=== PATIENT | female | born 1955 | race Caucasian/White ===

== ENCOUNTER 2018-10-31 20:55 | Inpatient (IN) | payer MEDICARE, BC, MEDICAID ==
[~2018-10-31] VITALS: Ht 170.2 cm; Wt 62.0 kg
[~2018-10-31 20:55] MED LIST: ALEN70TA2 PO; AMIT50TA3 PO; CETI-261 PO; FLUT1AER IH; FLUT1DIS3; GABA300C PO; IPRA3AMP24 NEB; MORP10CA11 PO; OSEL6SUS4 PO; OXYC15TA2 PO; PARO30TA76 PO
[2018-10-31 21:50] LABS: GLUCOSE,POINT OF CARE 94 MG/DL (70-110)
[2018-10-31] MEDS ORDERED: MAGNESIUM HYDROXIDE SUSPENSION 30 ML UDCUP PO PRN (22:15)
[2018-10-31] MEDS ORDERED: ONDANSETRON HCL 4 MG/2 ML VIAL IVP PRN (22:15)
[2018-10-31] MEDS ORDERED: BISACODYL 10 MG RECTAL RECTAL SUPPOSITORY PR PRN (22:15)
[2018-10-31] MEDS: ALBUTEROL SULFATE 2.5 MG/0.5 ML NEB SOLUTION NEB SCH (22:15)
[2018-10-31] MEDS: IPRATROPIUM BROMIDE 0.5 MG/2.5 ML NEB SOLUTION NEB SCH (22:15)
[2018-10-31 23:10] LABS: BASOPHILS % (AUTO) 0.3 % (0.0-2.0); HEMATOCRIT 35.1 % (36-46); HEMOGLOBIN 11.3 g/dL (12.0-16.0); LYMPHOCYTES # (AUTO) 0.6 K/uL (1.0-4.8); LYMPHOCYTES % (AUTO) 8.6 % (22.0-44.0); MEAN CORPUSCULAR HEMOGLOBIN 27.2 pg (26.0-34.0); MEAN CORPUSCULAR HGB CONC 32.1 G/dL (31.0-37.0); MEAN CORPUSCULAR VOLUME 85 fL (80-100); MONOCYTES # (AUTO) 0.3 K/uL (0.1-1.0); MONOCYTES % (AUTO) 4.1 % (2.0-9.0); NEUTROPHILS # (AUTO) 5.6 K/uL (1.8-7.7); PLATELET COUNT (AUTO) 266 K/uL (150-450); RED BLOOD CELL COUNT(AUTO) 4.15 MIL/uL (4.00-5.20); RED CELL DISTRIBUTION WIDTH 17.8 % (11.5-14.5)
[2018-10-31] MEDS: HEPARIN SODIUM,PORCINE 5,000 UNITS/ML VIAL SQ SCH (23:15)
[2018-10-31 23:23] LABS: PROTHROMBIN TIME 10.1 SEC (9.4-11.6)
[2018-10-31 23:25] LABS: ALANINE AMINOTRANSFERASE 20 U/L (12-78); ALBUMIN 2.8 g/dL (3.4-5.0); ALKALINE PHOSPHATASE 71 U/L (46-116); ANION GAP 9 mmol/L (8-16); ASPARTATE AMINOTRANSFERASE 19 U/L (15-37); BILIRUBIN,TOTAL 0.3 mg/dL (0.1-1.0); CALCIUM, TOTAL 8.7 mg/dL (8.8-10.5); CARBON DIOXIDE 27 mmol/L (22-29); CHLORIDE 102 mmol/L (98-107); CREATININE 0.74 mg/dL (0.60-1.30); GLOMERULAR FILTR. RATE CALC > 60 mL/min (>60); GLUCOSE,RANDOM 123 mg/dL (70-110); POTASSIUM 4.3 mmol/L (3.5-5.1); SODIUM SERUM 138 mmol/L (136-145); TOTAL PROTEIN, SERUM 6.6 g/dL (6.4-8.2)
[2018-10-31 23:34] LABS: B-TYPE NATRIURETIC PEPTIDE 42 pg/mL (0-100)
[2018-10-31 23:43] LABS: UREA NITROGEN, BLOOD 21 mg/dL (7-18)
[2018-11-01] MEDS: IPRATROPIUM BROMIDE 0.5 MG/2.5 ML NEB SOLUTION NEB SCH ×4 (02:43→20:25)
[2018-11-01] MEDS: ALBUTEROL SULFATE 2.5 MG/0.5 ML NEB SOLUTION NEB SCH ×4 (02:43→20:25)
[2018-11-01 02:52] VITALS: BP 135/64
[2018-11-01] MEDS ORDERED: INFLUENZA VIRUS VACCINE QVS 2019-20 (3YR+)/PF 60 MCG/0.5 ML SYRINGE IM ONE (03:30)
[2018-11-01 05:32] LABS: BASOPHILS % (AUTO) 0.5 % (0.0-2.0); EOSINOPHILS % (AUTO) 3.5 % (1.0-6.0); HEMATOCRIT 31.5 % (36-46); HEMOGLOBIN 10.2 g/dL (12.0-16.0); LYMPHOCYTES # (AUTO) 0.9 K/uL (1.0-4.8); LYMPHOCYTES % (AUTO) 21.6 % (22.0-44.0); MEAN CORPUSCULAR HEMOGLOBIN 27.3 pg (26.0-34.0); MEAN CORPUSCULAR HGB CONC 32.4 G/dL (31.0-37.0); MEAN CORPUSCULAR VOLUME 84 fL (80-100); MONOCYTES # (AUTO) 0.3 K/uL (0.1-1.0); NEUTROPHILS # (AUTO) 2.8 K/uL (1.8-7.7); NEUTROPHILS % (AUTO) 67.4 % (40.0-70.0); PLATELET COUNT (AUTO) 242 K/uL (150-450); RED BLOOD CELL COUNT(AUTO) 3.74 MIL/uL (4.00-5.20); RED CELL DISTRIBUTION WIDTH 17.5 % (11.5-14.5)
[2018-11-01 05:37] LABS: HEMOGLOBIN A1C 4.4 % (4.5-6.2)
[2018-11-01 05:47] LABS: BILIRUBIN,URINE NEGATIVE (NEGATIVE); GLUCOSE, URINE (UA) NEGATIVE (NEGATIVE); KETONES,URINE NEGATIVE (NEGATIVE); LEUKOCYTE ESTERASE ,URINE MODERATE (NEGATIVE); NITRATE,URINE NEGATIVE (NEGATIVE); PH,URINE 5.5 (5.0-8.0); PROTEIN,URINE NEGATIVE (NEGATIVE); UROBILINOGEN,URINE 0.2 mg/dL (<=1.0)
[2018-11-01 06:04] LABS: OCCULT BLOOD,URINE SMALL (NEGATIVE)
[2018-11-01 06:05] LABS: APPEARANCE,URINE SLIGHTLY CLOUDY (CLEAR)
[2018-11-01 06:06] LABS: BACTERIA,URINE Moderate /HPF (None Seen); SQUAMOUS EPITHELIAL CELL,UR Moderate /LPF (None Seen)
[2018-11-01 06:08] LABS: ANION GAP 8 mmol/L (8-16); CALCIUM, TOTAL 8.2 mg/dL (8.8-10.5); CARBON DIOXIDE 29 mmol/L (22-29); CHLORIDE 105 mmol/L (98-107); CHOL/HDL RATIO 2.4 (3.9-5.7); CHOLESTEROL 146 mg/dL (131-200); CREATINE KINASE, TOTAL ONLY 32 U/L (26-192); CREATININE 0.62 mg/dL (0.60-1.30); FREE T4 (FREE THYROXINE) 1.03 ng/dL (0.76-1.46); GLOMERULAR FILTR. RATE CALC > 60 mL/min (>60); GLUCOSE,RANDOM 86 mg/dL (70-110); HDL CHOLESTEROL 60 mg/dL (40-60); LDL CHOL (CALC.) 78 mg/dL (0-130); POTASSIUM 3.8 mmol/L (3.5-5.1); SODIUM SERUM 142 mmol/L (136-145); THYROID STIMULATING HORMONE 0.83 uIU/mL (0.36-3.74); TRIGLYCERIDES 42 mg/dL (15-150); UREA NITROGEN, BLOOD 20 mg/dL (7-18)
[2018-11-01] MEDS ORDERED: AMITRIPTYLINE HCL 50 MG TABLET PO SCH (09:00)
[2018-11-01] MEDS ORDERED: CETIRIZINE HCL 1 MG/ML PO SCH (09:00)
[2018-11-01 09:27] VITALS: BP 126/76
[2018-11-01] MEDS: FLUTICASONE/VILANTEROL 100-25 MCG/INH INHALER [14] IH SCH (09:50)
[2018-11-01] MEDS: PANTOPRAZOLE SODIUM 40 MG DR TABLET PO SCH (09:50)
[2018-11-01] MEDS: GABAPENTIN 300 MG CAPSULE PO SCH ×3 (09:50→21:32)
[2018-11-01] MEDS: PARoxetine HCL 10 MG TABLET PO SCH (09:50)
[2018-11-01] MEDS: HEPARIN SODIUM,PORCINE 5,000 UNITS/ML VIAL SQ SCH ×2 (09:50→21:59)
[2018-11-01 11:59] VITALS: BP 121/74
[2018-11-01] MEDS ORDERED: SODIUM CHLORIDE 0.9% 250 ML IV ONE (13:51)
[2018-11-01] MEDS: CefTRIAXone 1 GM/DEXTROSE 50 ML IV SCH (13:55)
[2018-11-01 15:19] VITALS: BP 122/72
[2018-11-01] MEDS: DICLOFENAC SODIUM 1% 100 GM GEL [4GM] TP SCH ×3 (17:23→21:32)
[2018-11-01] MEDS: PSYLLIUM SEED ORANGE SF 5.8 GM/PACKET PO SCH ×2 (17:23→21:32)
[2018-11-01 20:25] VITALS: BP 139/79
[2018-11-02 00:20] VITALS: BP 159/90
[2018-11-02] MEDS: ALBUTEROL SULFATE 2.5 MG/0.5 ML NEB SOLUTION NEB SCH ×4 (03:10→19:47)
[2018-11-02] MEDS: IPRATROPIUM BROMIDE 0.5 MG/2.5 ML NEB SOLUTION NEB SCH ×4 (03:10→19:47)
[2018-11-02 04:30] VITALS: BP 168/93
[2018-11-02 06:39] LABS: BASOPHILS % (AUTO) 0.2 % (0.0-2.0); EOSINOPHILS % (AUTO) 1.9 % (1.0-6.0); HEMATOCRIT 36.8 % (36-46); HEMOGLOBIN 11.7 g/dL (12.0-16.0); LYMPHOCYTES # (AUTO) 0.7 K/uL (1.0-4.8); LYMPHOCYTES % (AUTO) 17.5 % (22.0-44.0); MEAN CORPUSCULAR HEMOGLOBIN 26.9 pg (26.0-34.0); MEAN CORPUSCULAR HGB CONC 31.8 G/dL (31.0-37.0); MEAN CORPUSCULAR VOLUME 85 fL (80-100); MONOCYTES # (AUTO) 0.2 K/uL (0.1-1.0); MONOCYTES % (AUTO) 4.9 % (2.0-9.0); NEUTROPHILS # (AUTO) 2.9 K/uL (1.8-7.7); NEUTROPHILS % (AUTO) 75.5 % (40.0-70.0); PLATELET COUNT (AUTO) 259 K/uL (150-450); RED BLOOD CELL COUNT(AUTO) 4.35 MIL/uL (4.00-5.20); RED CELL DISTRIBUTION WIDTH 17.7 % (11.5-14.5)
[2018-11-02 06:58] LABS: ANION GAP 7 mmol/L (8-16); CALCIUM, TOTAL 8.5 mg/dL (8.8-10.5); CARBON DIOXIDE 31 mmol/L (22-29); CHLORIDE 105 mmol/L (98-107); CREATININE 0.66 mg/dL (0.60-1.30); GLOMERULAR FILTR. RATE CALC > 60 mL/min (>60); GLUCOSE,RANDOM 85 mg/dL (70-110); POTASSIUM 3.2 mmol/L (3.5-5.1); SODIUM SERUM 143 mmol/L (136-145); UREA NITROGEN, BLOOD 14 mg/dL (7-18)
[2018-11-02] MEDS ORDERED: CloNIDine HCL 0.1 MG TABLET PO PRN (07:15)
[2018-11-02] MEDS ORDERED: POTASSIUM CHLORIDE 20 MEQ ER TABLET PO PRN (07:15)
[2018-11-02] MEDS ORDERED: LOPERAMIDE HCL 2 MG CAPSULE PO PRN (07:15)
[2018-11-02] MEDS ORDERED: POTASSIUM CHL 10 MEQ/WATER 50 ML IV PRN (07:15)
[2018-11-02] MEDS: LACTOBAC ACID/BULG/BIFID/THERM TABLET PO SCH (08:11)
[2018-11-02] MEDS: FLUTICASONE/VILANTEROL 100-25 MCG/INH INHALER [14] IH SCH (08:11)
[2018-11-02 08:12] VITALS: BP 115/80
[2018-11-02] MEDS: PSYLLIUM SEED ORANGE SF 5.8 GM/PACKET PO SCH ×3 (08:12→20:33)
[2018-11-02] MEDS: GABAPENTIN 300 MG CAPSULE PO SCH ×3 (08:12→20:32)
[2018-11-02] MEDS: AmLODIPine BESYLATE 5 MG TABLET PO SCH (08:12)
[2018-11-02] MEDS: MONTELUKAST SODIUM 10 MG TABLET PO SCH (08:13)
[2018-11-02] MEDS: PANTOPRAZOLE SODIUM 40 MG DR TABLET PO SCH (08:13)
[2018-11-02] MEDS: PARoxetine HCL 10 MG TABLET PO SCH (08:13)
[2018-11-02] MEDS: HEPARIN SODIUM,PORCINE 5,000 UNITS/ML VIAL SQ SCH ×2 (08:14→21:05)
[2018-11-02] MEDS: DICLOFENAC SODIUM 1% 100 GM GEL [4GM] TP SCH ×4 (08:14→20:32)
[2018-11-02] MEDS: OxyCODONE HCL 5 MG IR TABLET PO PRN ×2 (08:23→17:59)
[2018-11-02 11:28] VITALS: BP 118/76
[2018-11-02] MEDS: CefTRIAXone 1 GM/DEXTROSE 50 ML IV SCH (13:04)
[2018-11-02 16:05] VITALS: BP 142/66
[2018-11-02 20:11] VITALS: BP 108/58
[2018-11-02] MEDS ORDERED: AMITRIPTYLINE HCL 50 MG TABLET PO SCH (21:00)
[2018-11-03 00:06] VITALS: BP 136/94
[2018-11-03] MEDS: IPRATROPIUM BROMIDE 0.5 MG/2.5 ML NEB SOLUTION NEB SCH ×2 (04:15→07:49)
[2018-11-03] MEDS: ALBUTEROL SULFATE 2.5 MG/0.5 ML NEB SOLUTION NEB SCH ×2 (04:15→07:49)
[2018-11-03 05:17] VITALS: BP 154/96
[2018-11-03 07:34] VITALS: BP 157/85
[2018-11-03 08:23] LABS: BASOPHILS % (AUTO) 0.4 % (0.0-2.0); EOSINOPHILS % (AUTO) 3.4 % (1.0-6.0); HEMOGLOBIN 11.2 g/dL (12.0-16.0); LYMPHOCYTES % (AUTO) 22.3 % (22.0-44.0); MEAN CORPUSCULAR HEMOGLOBIN 26.3 pg (26.0-34.0); MEAN CORPUSCULAR HGB CONC 31.2 G/dL (31.0-37.0); MEAN CORPUSCULAR VOLUME 84 fL (80-100); MONOCYTES # (AUTO) 0.3 K/uL (0.1-1.0); MONOCYTES % (AUTO) 6.1 % (2.0-9.0); NEUTROPHILS % (AUTO) 67.8 % (40.0-70.0); PLATELET COUNT (AUTO) 277 K/uL (150-450); RED BLOOD CELL COUNT(AUTO) 4.27 MIL/uL (4.00-5.20); RED CELL DISTRIBUTION WIDTH 17.5 % (11.5-14.5)
[2018-11-03 08:36] LABS: ANION GAP 9 mmol/L (8-16); CALCIUM, TOTAL 8.5 mg/dL (8.8-10.5); CARBON DIOXIDE 29 mmol/L (22-29); CHLORIDE 106 mmol/L (98-107); CREATININE 0.62 mg/dL (0.60-1.30); GLOMERULAR FILTR. RATE CALC > 60 mL/min (>60); GLUCOSE,RANDOM 80 mg/dL (70-110); POTASSIUM 3.8 mmol/L (3.5-5.1); SODIUM SERUM 144 mmol/L (136-145); UREA NITROGEN, BLOOD 15 mg/dL (7-18)
[2018-11-03] MEDS: OxyCODONE HCL 5 MG IR TABLET PO PRN (09:14)
[2018-11-03] MEDS: PARoxetine HCL 10 MG TABLET PO SCH (09:15)
[2018-11-03] MEDS: DICLOFENAC SODIUM 1% 100 GM GEL [4GM] TP SCH ×2 (09:15→14:18)
[2018-11-03] MEDS: FLUTICASONE/VILANTEROL 100-25 MCG/INH INHALER [14] IH SCH (09:15)
[2018-11-03] MEDS: PANTOPRAZOLE SODIUM 40 MG DR TABLET PO SCH (09:15)
[2018-11-03] MEDS: MONTELUKAST SODIUM 10 MG TABLET PO SCH (09:15)
[2018-11-03] MEDS: AmLODIPine BESYLATE 5 MG TABLET PO SCH (09:15)
[2018-11-03] MEDS: LACTOBAC ACID/BULG/BIFID/THERM TABLET PO SCH (09:15)
[2018-11-03] MEDS: HEPARIN SODIUM,PORCINE 5,000 UNITS/ML VIAL SQ SCH (09:15)
[2018-11-03] MEDS: PSYLLIUM SEED ORANGE SF 5.8 GM/PACKET PO SCH (09:15)
[2018-11-03] MEDS: GABAPENTIN 300 MG CAPSULE PO SCH (09:16)
[2018-11-03 11:03] VITALS: BP 123/65
[2018-11-03] MEDS: CefTRIAXone 1 GM/DEXTROSE 50 ML IV SCH (11:42)
[2018-11-03] MEDS ORDERED: ALBUTEROL SULFATE 2.5 MG/0.5 ML NEB SOLUTION NEB SCH (14:00)
[2018-11-03] MEDS ORDERED: IPRATROPIUM BROMIDE 0.5 MG/2.5 ML NEB SOLUTION NEB SCH (14:00)
== END 2018-11-03 14:40 | DRG 917 ==
LOC: EMS 20:56 → 5S 22:30
PROVIDERS: ADMIT Internal Medicine Geriatric Medicine; ATTEND Internal Medicine Geriatric Medicine
DX: T40.604A Poisoning by unspecified narcotics, undetermined, initial encounter (principal); G92 Toxic encephalopathy; J44.1 Chronic obstructive pulmonary disease with (acute) exacerbation; N39.0 Urinary tract infection, site not specified; C18.9 Malignant neoplasm of colon, unspecified; R09.02 Hypoxemia; M06.9 Rheumatoid arthritis, unspecified; K21.9 Gastro-esophageal reflux disease without esophagitis; R26.9 Unspecified abnormalities of gait and mobility; M19.90 Unspecified osteoarthritis, unspecified site; I10 Essential (primary) hypertension; E83.42 Hypomagnesemia; E87.6 Hypokalemia; D64.9 Anemia, unspecified; E11.9 Type 2 diabetes mellitus without complications; I11.0 Hypertensive heart disease with heart failure; I50.9 Heart failure, unspecified; Z85.038 Personal history of other malignant neoplasm of large intestine; Z87.891 Personal history of nicotine dependence; Z90.710 Acquired absence of both cervix and uterus; Z98.84 Bariatric surgery status
CPT/HCPCS: 71250; 82271; 83036; 83735; 84132; 84439; 84443; 87045; 87081; 87086; 93005; 93306; 94640; 97162; 97166; J0696; J1644; J7050